=== PATIENT | female | born 1935 | race African-American/Black ===

== ENCOUNTER 2017-04-25 12:47 | Emergency (ER) | payer MEDICARE, OTHER ==
[~2017-04-25] VITALS: Ht 152.4 cm; Wt 51.3 kg
[2017-04-25 12:47] VITALS: BP 139/72
[~2017-04-25 12:47] MED LIST: ALEN70TA5 PO; AMLO10TA2 PO; ASPI-612 PO; ASPI325T8 PO; ATOR40TA59 PO; BRIM5DRO2 OP; CARV12.52 PO; CLOP75TA PO; ERGO500027 PO; FURO40TA4 PO; LANS30CA PO; LATA2.5D3 EACHEYE; LISI2.5T PO; METO25TA4 PO; NYST1POW2 PO; OLME1TAB23 PO; SIMV20TA3 PO; SOLI10TA2 PO; [UNRECOGNIZED DRUG - CODE] TD
--- NOTE | 2017-04-25 14:00 | PHYS DOC ---
Past Medical History Past Medical History: GERD, High Cholesterol, Hypertension, [place] Past Surgical History: Cholecystectomy, Hysterectomy, Pacemaker, Other Additional Past Surgical Histo: cardiac stents Alcohol Use: None Drug Use: None Adult General Chief Complaint Chief Complaint: ABDOMINAL PAIN HPI HPI 82-year-old female presenting to the emergency department today by EMS after STEMI activation in the field by EMS. The patient originally called EMS because the patient has been having epigastric abdominal pain and reports constipation for the past few days. Her pain is mild intermittent nonradiating without alleviating factors. She also has associated shortness of breath with this. Her daughter who is here with her today who came after the ambulance explained to me that she was concerned because the patient has been having worsening shortness of breath and thinks that maybe she needs her Lasix increased. Because the paramedics believe the patient have a STEMI they brought the patient here as we were the most close local facility to the patient for potential percutaneous coronary intervention. Upon arrival to the emergency department the patient's EKG does not meet STEMI criteria and is not suggestive of acute coronary syndrome at this time. It is a paced rhythm. Difficult to interpret due to this. Review of systems is negative for fevers chills nausea vomiting. Negative for chest pain. Negative for cough. Negative for confusion numbness weakness or tingling. All other review of systems is negative unless otherwise noted in history of present illness. ED course: 82-year-old female who had presented to the emergency department by EMS due to concern for time sensitive pathology. Upon arrival the patient's EKG was not consistent with STEMI. Did not meet STEMI criteria. The patient is not having chest pain and has more chronic clinical presentation of shortness of breath suggestive of possible worsening fluid overload. The patient is not hypoxic in our emergency department and appears to be stable clinically. The family arrived a few minutes later explained the patient's condition and presentation in a more clear fashion. They desire the patient to go to the [facility]. Her to transfer the patient to the [facility] from emergency room to emergency room however explained this may take some time. The family understood and desired the pt to go more quickly and left AMA. I explained the risks and benefits of leaving AMA to the family and the patient. If the patient were to stay the patient would've had more blood work and a more clear picture of the patient's clinical presentation. That being said, the patient has stable vital signs and appears to be stable clinically. The patient and her family then left AGAINST MEDICAL ADVICE. Review of Systems Review of Systems SEE ABOVE. Allergies Allergies Allergies Coded Allergies Type Severity Reaction Last Updated Verified No Known Drug Allergies 05/25/16 No Physical Exam Physical Exam SEE ABOVE Constitutional: Well developed, well nourished, no acute distress, non-toxic appearance. [] HENT: Normocephalic, atraumatic, bilateral external ears normal, oropharynx moist, no oral exudates, nose normal. [] Eyes: PERRLA, EOMI, conjunctiva normal, no discharge. [] Neck: Normal range of motion, no tenderness, supple, no stridor. [] Cardiovascular:Heart rate regular rhythm, no murmur [] Lungs & Thorax: Bilateral breath sounds clear to auscultation [] no crackles on examination. Abdomen: Bowel sounds normal, soft, no tenderness, no masses, no pulsatile masses. [] Abdomen is soft and nontender. Negative McBurney's point. Negative Ny sign. No tympany on percussion of the abdomen. Skin: Warm, dry, no erythema, no rash. [] 2 second cap refill. Back: No tenderness, no CVA tenderness. [] Extremities: No tenderness, no cyanosis, no clubbing, ROM intact, no edema. [] Neurologic: Alert and oriented X 3, normal motor function, normal sensory function, no focal deficits noted. [] Psychologic: Affect normal, judgement normal, mood normal. [] Current Patient Data Vital Signs Vital Signs Date Time Temp Pulse Resp B/P (MAP) Pulse Ox O2 Delivery O2 Flow Rate FiO2 04/25/17 12:47 97.2 65 18 139/72 (94) 100 Room Air 97.2 EKG EKG [] EKG shows a paced rhythm with a regular rate. [place] is normal. Intervals show prolonged QRS. Paced rhythm present. ST segments are congruent. Not suggestive of acute coronary syndrome. (Patient's clinical presentation is not suggestive of acute coronary syndrome as well.) Radiology/Procedures Radiology/Procedures [] Course & Med Decision Making Course & Med Decision Making Pertinent Labs and Imaging studies reviewed. (See chart for details) [] Dragon Disclaimer Dragon Disclaimer This electronic medical record was generated, in whole or in part, using a voice recognition dictation system. Departure Departure Impression: Primary Impression: Epigastric abdominal pain Additional Impression: Shortness of breath Disposition: 07 AGAINST MEDICAL ADVICE Condition: STABLE Referrals: BUCK MARTÍNEZ (PCP) Problem Qualifiers FCO KRAFT MD Apr 25, 2017 14:00
--- NOTE | 2017-04-25 15:50 | EKG ---
[facility] [address] [place] [address] Test Date: 2017-04-25 Test Time: 12:51:00 Pat Name: ANTOINE VALERA Department: Room: Gender: F [employer]: : [id number] Requested By: FCO KRAFT Order Number: [id number] Reading MD: Measurements Intervals [place] Rate: 62 P: [place]: QRS: -141 QRSD: 144 T: 149 QT: 372 QTc: 380 Interpretive Statements IRREGULAR RHYTHM, NO P-WAVE FOUND VENTRICULAR PREMATURE COMPLEX(ES) ABNORMAL RIGHT SUPERIOR AXIS DEVIATION LOW LIMB LEAD VOLTAGE NON SPECIFIC INTRAVENTRICULAR BLOCK CONSIDER RIGHT VENTRICULAR HYPERTROPHY ABNORMAL ECG RI6.01 No previous ECG available for comparison
== END 2017-04-25 13:33 | disposition left against medical advice (07) ==
LOC: ER 12:47
DX: R10.13 Epigastric pain (principal); R06.02 Shortness of breath; K59.00 Constipation, unspecified; E78.00 Pure hypercholesterolemia, unspecified; I10 Essential (primary) hypertension; K21.9 Gastro-esophageal reflux disease without esophagitis; Z95.5 Presence of coronary angioplasty implant and graft; Z95.0 Presence of cardiac pacemaker; I25.2 Old myocardial infarction; Z90.710 Acquired absence of both cervix and uterus; Z90.49 Acquired absence of other specified parts of digestive tract
CPT/HCPCS: 93005; 99284-25